=== PATIENT | female | born 1995 | race Two or more races ===

== ENCOUNTER 2022-10-30 20:34 | Emergency (ER) | payer BC ==
[~2022-10-30] VITALS: Ht 165.1 cm; Wt 61.8 kg
[2022-10-30 20:44] VITALS: BP 124/67; PULSE 87; RESP 16; O2SAT 97
[2022-10-30] MEDS ORDERED: ACET500T58 PO (22:53)
[2022-10-30] MEDS ORDERED: AMOX875T4 PO (22:53)
[2022-10-30] MEDS ORDERED: TETANUS-DIPTH-ACEL PERTUSSIS 0.5ML SYR Tdap IM ONE (23:00)
== END 2022-10-30 23:20 | disposition home or self-care (01) ==
LOC: ER 20:34
DX: S71.152A Open bite, left thigh, initial encounter (principal); J45.909 Unspecified asthma, uncomplicated; W54.0XXA Bitten by dog, initial encounter; Y93.89 Activity, other specified; Y92.89 Other specified places as the place of occurrence of the external cause; Y99.8 Other external cause status
CPT/HCPCS: 90471; 90715